=== PATIENT | female | born 1980 | race Caucasian/White ===

== ENCOUNTER 2022-05-20 10:38 | Emergency (ER) | payer BC ==
[2022-05-20] MEDS ORDERED: LORazepam 2 MG/ML SDV ONE (10:52)
[2022-05-20] MEDS ORDERED: LORazepam 2 MG/ML SDV IVPUSH ONE (10:56)
[2022-05-20] MEDS ORDERED: Sodium Chloride 0.9% 1,000 ML IV SCH (11:00)
[2022-05-20] MEDS ORDERED: Sodium Chloride 0.9% 10 ML Syringe FLUSH PRN (11:00)
[2022-05-20 11:38] LABS: CHLORIDE,CL 101 mmol/L (98-107); SODIUM,NA 138 mmol/L (136-145)
[2022-05-20 11:39] LABS: ANION GAP 22.6 meq/L (7-15); ESTIMATED GFR 75 mL/min (>=60)
[2022-05-20 11:55] LABS: CORONAVIRUS COVID-19 NAA NEGATIVE (NEGATIVE); RESPIRATORY SYNCYTIAL VIR NAA NEGATIVE (NEGATIVE)
[2022-05-20] MEDS ORDERED: Potassium Chloride 20 MEQ Tab.ER PO ONE (11:57)
[2022-05-20 11:59] LABS: PTT,PARTIAL THROMBOPLSTIN TIME 22.6 SEC (23.6-29.8)
[2022-05-20] MEDS ORDERED: Magnesium Sulfate/Water 2 GM in Premix Bag 1 BAG IV ONE (12:02)
[2022-05-20] MEDS ORDERED: Sodium Chloride 0.9% 1,000 ML IV ONE (12:03)
[2022-05-20] MEDS: Potassium Chloride Riders 10 MEQ in Premix Bag 1 BAG IV SCH ×4 (12:25→16:05)
[2022-05-20] MEDS ORDERED: Potassium Chloride 10 MEQ Tab.ER PO ONE (14:00)
== END 2022-05-20 16:45 | disposition home or self-care (01) ==
LOC: LL.ED 10:38
DX: E86.0 Dehydration (principal); E83.42 Hypomagnesemia; E87.6 Hypokalemia; R00.0 Tachycardia, unspecified; Z20.822 Contact with and (suspected) exposure to COVID-19
CPT/HCPCS: 0241U; 36415; 70450; 71045; 80053; 81003; 82550; 83605; 83735; 83880; 84132; 84443; 84484; 85025; 85379; 85610; 85730; 93005; 93010; 96361; 96365; 96366; 96367; 96368; 96375; 96376; 99284; 99284-25; A9270-GY; J2060; J3475; J3480; J7030